=== PATIENT | male | born 1985 | race Caucasian/White ===

== ENCOUNTER 2017-09-04 00:11 | Emergency (ER) | payer BC, OTHER ==
[~2017-09-04] VITALS: Ht 177.8 cm; Wt 74.8 kg
[2017-09-04 00:11] VITALS: BP 127/81
[2017-09-04] MEDS ORDERED: TRAMADOL HCL 50 MG TABLET ONE (00:37)
[2017-09-04] MEDS ORDERED: ONDANSETRON 4 MG TAB.RAPDIS ONE (00:37)
[2017-09-04] MEDS ORDERED: ONDANSETRON 4 MG TAB.RAPDIS SL ONE (01:00)
[2017-09-04] MEDS ORDERED: TRAMADOL HCL 50 MG TABLET PO ONE (01:00)
[2017-09-04] MEDS ORDERED: ACETAMINOPHEN 325 MG TABLET PO ONE (02:00)
[2017-09-04] MEDS ORDERED: ACETAMINOPHEN ES 500 MG TABLET ONE (02:04)
== END 2017-09-04 02:07 | disposition home or self-care (01) ==
LOC: ER 00:13
DX: E86.0 Dehydration (principal); R11.0 Nausea; R50.9 Fever, unspecified; M79.1 Myalgia; F17.200 Nicotine dependence, unspecified, uncomplicated; Z87.442 Personal history of urinary calculi
CPT/HCPCS: 87400; A4606; Q0162; Z7610

== ENCOUNTER 2018-05-03 05:38 | Emergency (ER) | payer BC, OTHER ==
[~2018-05-03] VITALS: Ht 185.4 cm; Wt 65.8 kg
[2018-05-03 05:39] VITALS: BP 120/80
[2018-05-03] MEDS ORDERED: TDAP [DIPH/PERTUSSIS/TET] 0.5 ML VIAL IM ONE ×2 (06:07→06:30)
== END 2018-05-03 06:37 | disposition home or self-care (01) ==
LOC: ER 05:40
DX: S61.304A Unspecified open wound of right ring finger with damage to nail, initial encounter (principal); F17.200 Nicotine dependence, unspecified, uncomplicated; X58.XXXA Exposure to other specified factors, initial encounter; Y93.G3 Activity, cooking and baking; Y92.89 Other specified places as the place of occurrence of the external cause; Y99.8 Other external cause status
CPT/HCPCS: 90715; A4606; Z7610

== ENCOUNTER 2019-10-25 09:54 | Outpatient (CLI) | payer BC ==
[2019-10-25 12:06] LABS: ALBUMIN 4.5 g/dL (3.4-5.0); BILIRUBIN,TOTAL 0.5 mg/dL (0.2-1.0); CALCIUM, SERUM 9.7 mg/dL (8.5-10.1); POTASSIUM 3.7 mmol/L (3.5-5.1); TOTAL PROTEIN, SERUM 7.8 g/dL (6.4-8.2)
[2019-10-25 12:17] LABS: BASOPHILS # (AUTO) 0.1 /CMM (0.0-0.2); BASOPHILS % (AUTO) 1.1 % (0.0-2.0); EOSINOPHILS % (AUTO) 4.2 % (0.0-6.0); HEMATOCRIT 48 % (39-51); HEMOGLOBIN 16.5 g/dL (13.5-17.5); LYMPHOCYTES # (AUTO) 2.2 /CMM (0.8-4.8); LYMPHOCYTES % (AUTO) 22.1 % (20.0-44.0); MEAN CORPUSCULAR HGB CONC 34 g/dl (31.0-36.0); MEAN CORPUSCULAR VOLUME 88 fL (80-96); MONOCYTES # (AUTO) 0.7 /CMM (0.1-1.30); MONOCYTES % (AUTO) 7.4 % (2.0-12.0); NEUTROPHILS # (AUTO) 6.5 /CMM (1.8-8.9); NEUTROPHILS % (AUTO) 65.2 % (43.0-81.0); PLATELET COUNT (AUTO) 314 /CMM (150-450); RED BLOOD CELL COUNT(AUTO) 5.47 MIL/uL (4.5-6.0)
[2019-10-25 12:34] LABS: APPEARANCE,URINE CLEAR (CLEAR); BILIRUBIN,URINE NEGATIVE (NEGATIVE); BLOOD, URINE NEGATIVE Ery/uL (NEGATIVE); COLOR,URINE YELLOW (YELLOW); KETONES,URINE NEGATIVE (NEGATIVE); LEUKOCYTE ESTERASE ,URINE NEGATIVE (NEGATIVE); NITRITE, URINE NEGATIVE (NEGATIVE); PROTEIN,URINE NEGATIVE (NEGATIVE); UGLUCOSE NEGATIVE (NEGATIVE); UROBILINOGEN,URINE 0.2 EU/dL (0.2)
[2019-10-26 01:33] LABS: THYROID STIMULATING HORMONE 2.073 uIU/mL (0.358-3.74); URIC ACID 6.2 mg/dL (2.6-7.2)
[2019-10-26 11:07] LABS: FOLIC ACID 12.6 ng/mL (>3.0)
== END 2019-10-25 23:59 | disposition home or self-care (01) ==
LOC: LAB 09:54
PROVIDERS: ATTEND Legal Medicine
DX: Z00.00 Encounter for general adult medical examination without abnormal findings (principal)
CPT/HCPCS: 36415; 80053-TC; 80061-TC; 81000-TC; 82306; 82626; 82728-TC; 83540-TC; 84402; 84403; 84439-TC; 84443-TC; 84550-TC; 85025-TC

== ENCOUNTER 2019-12-14 12:19 | Outpatient (CLI) | payer BC ==
[2019-12-15 08:06] LABS: *MUMPS AB (IGG) 46.3 AU/mL (Immune >10.9); *RUBEOLA AB (IGG) >300.0 AU/mL (Immune >16.4); RUBELLA ANTIBODIES, IGG 3.21 index (Immune >0.99); VARICELLA ZOSTER IgG 603 index (Immune >165)
== END 2019-12-14 23:59 | disposition home or self-care (01) ==
LOC: LAB 12:19
PROVIDERS: ATTEND Legal Medicine
DX: Z00.00 Encounter for general adult medical examination without abnormal findings (principal)
CPT/HCPCS: 36415; 86706; 86735; 86762; 86765; 86787; 87340

== ENCOUNTER 2020-01-20 11:53 | Outpatient (CLI) | payer BC | END 2020-01-20 23:59 | disposition home or self-care (01) | LOC: LAB 11:53 | PROVIDERS: ATTEND Legal Medicine | DX: Z00.00 Encounter for general adult medical examination without abnormal findings (principal) | CPT/HCPCS: 36415; 86317; 87340 ==

== ENCOUNTER 2020-04-05 19:44 | Emergency (ER) | payer BC ==
[~2020-04-05] VITALS: Ht 188 cm; Wt 88.5 kg
--- NOTE | 2020-04-05 20:02 | NUR ---
PATIENT CAME TO ER BED 6 C/O NON-RADIATING LOWER ABDOMINAL PAIN SINCE LAST NIGHT. PATIENT STATES THAT HE HAS PAINFUL GAS AND HAS HAD A BOWEL MOVEMENT LAST NIGHT WITH NO DIARRHEA. DENIES ANY NAUSEA AND VOMITING. PATIENT STATES, " I HAVE A 101 FEVER LAST NIGHT". PATIENT ABLE TO PROVIDE URINE SAMPLE. PATIENT IS [id number]. AMBULATORY. NO SOB. BREATHING EVENLY AND UNLABORED ON ROOM AIR.
--- NOTE | 2020-04-05 20:06 | NUR ---
BLOOD AND URINE IS COLLECTED AND SENT TO THE LAB.
[2020-04-05 20:08] LABS: BASOPHILS # (AUTO) 0.1 /CMM (0.0-0.2); BASOPHILS % (AUTO) 0.6 % (0.0-2.0); EOSINOPHILS % (AUTO) 0.8 % (0.0-6.0); HEMATOCRIT 45 % (39-51); HEMOGLOBIN 15.4 g/dL (13.5-17.5); LYMPHOCYTES # (AUTO) 1.5 /CMM (0.8-4.8); LYMPHOCYTES % (AUTO) 10.1 % (20.0-44.0); MEAN CORPUSCULAR HGB CONC 34 g/dl (31.0-36.0); MEAN CORPUSCULAR VOLUME 89 fL (80-96); MONOCYTES # (AUTO) 1.5 /CMM (0.1-1.30); MONOCYTES % (AUTO) 10.1 % (2.0-12.0); NEUTROPHILS # (AUTO) 11.8 /CMM (1.8-8.9); NEUTROPHILS % (AUTO) 78.4 % (43.0-81.0); PLATELET COUNT (AUTO) 272 /CMM (150-450); RED BLOOD CELL COUNT(AUTO) 5.03 MIL/uL (4.5-6.0)
[2020-04-05] MEDS ORDERED: ONDANSETRON HCL/PF 4 MG/2 ML VIAL ONE (20:09)
[2020-04-05 20:15] LABS: CALCIUM, SERUM 8.9 mg/dL (8.5-10.1); POTASSIUM 3.7 mmol/L (3.5-5.1)
--- NOTE | 2020-04-05 20:15 | NUR ---
PT TAKEN TO RADIOLOGY FOR CT
[2020-04-05 20:16] LABS: APPEARANCE,URINE Clear (CLEAR); BILIRUBIN,URINE Negative (NEGATIVE); BLOOD, URINE Trace-intact Ery/uL (NEGATIVE); COLOR,URINE Yellow (YELLOW); KETONES,URINE Negative (NEGATIVE); LEUKOCYTE ESTERASE ,URINE Negative (NEGATIVE); NITRITE, URINE Negative (NEGATIVE); PH,URINE 5.5 (5.0-8.0); PROTEIN,URINE Negative (NEGATIVE); UGLUCOSE Negative (NEGATIVE); UROBILINOGEN,URINE 0.2 EU/dL (0.2)
[2020-04-05 20:19] LABS: BACTERIA,URINE None seen /HPF (None Seen); MUCUS,URINE Few /LPF (None Seen); RBC,URINE 2-3/HPF /HPF (0-2); SQUAMOUS EPITHELIAL CELL,UR Rare /HPF (None Seen); URINE AMORPHOUS URATE Few /HPF (None Seen); WBC,URINE 0-2 /HPF (0-3)
[2020-04-05 20:21] LABS: ALBUMIN 4.3 g/dL (3.4-5.0); BILIRUBIN,DIRECT 0.2 mg/dL (0.0-0.2); BILIRUBIN,TOTAL 0.9 mg/dL (0.2-1.0)
--- NOTE | 2020-04-05 20:29 | NUR ---
covid swab done and sent to lab
[2020-04-05] MEDS ORDERED: ONDANSETRON HCL/PF 4 MG/2 ML VIAL IVP ONE (20:30)
[2020-04-05] MEDS ORDERED: IV NS 0.9% 1,000 ML BAG IV ONE (20:30)
[2020-04-05] MEDS ORDERED: MORPHINE SULFATE INJ 2 MG/ML DISP.SYRIN IV ONE (21:30)
[2020-04-05] MEDS ORDERED: MORPHINE SULFATE INJ 4 MG/ML DISP.SYRIN ONE (21:31)
[2020-04-05] MEDS ORDERED: PIPERACILLIN /TAZOBACTAM 3.375 G VIAL IV ONE (21:58)
[2020-04-05] MEDS ORDERED: PIPERACILLIN /TAZOBACTAM 3.375 G in IV D5W 50 ML IV ONE (22:00)
--- NOTE | 2020-04-05 22:40 | NUR ---
Patient discharged to home in stable condition. Written and verbal after care instructions given. Patient verbalizes understanding of instruction.IV removed. Catheter intact and site benign. Pressure and 4x4 applied to site. No bleeding noted. Pt ambulatory with a steady gait
[2020-04-05 22:46] VITALS: BP 124/83
== END 2020-04-05 22:46 | disposition home or self-care (01) ==
LOC: ER 19:47
DX: K57.32 Diverticulitis of large intestine without perforation or abscess without bleeding (principal); R00.0 Tachycardia, unspecified; R31.9 Hematuria, unspecified; N20.0 Calculus of kidney; R50.9 Fever, unspecified; Z20.828 Contact with and (suspected) exposure to other viral communicable diseases
CPT/HCPCS: 36415; 80048; 80076; 81001; 83690; 85025; 96361; 96365; 96375; 99284; C9803; J2270; J2405; J2543 ×2; J7060; U0003; 81000-TC

== ENCOUNTER 2021-02-06 12:25 | Outpatient (CLI) | payer BC ==
[2021-02-06 13:27] LABS: BASOPHILS # (AUTO) 0.1 K/uL (0.0-0.2); BASOPHILS % (AUTO) 1.1 % (0.0-2.0); EOSINOPHILS % (AUTO) 4.2 % (0.0-6.0); HEMATOCRIT 48 % (39-51); HEMOGLOBIN 16.6 g/dL (13.5-17.5); LYMPHOCYTES # (AUTO) 1.7 K/uL (0.8-4.8); LYMPHOCYTES % (AUTO) 24.3 % (20.0-44.0); MEAN CORPUSCULAR HGB CONC 34 g/dl (31.0-36.0); MEAN CORPUSCULAR VOLUME 91 fL (80-96); MONOCYTES # (AUTO) 0.6 K/uL (0.1-1.30); MONOCYTES % (AUTO) 8.7 % (2.0-12.0); NEUTROPHILS # (AUTO) 4.3 K/uL (1.8-8.9); NEUTROPHILS % (AUTO) 61.7 % (43.0-81.0); PLATELET COUNT (AUTO) 321 K/uL (150-450); RED BLOOD CELL COUNT(AUTO) 5.33 MIL/uL (4.5-6.0)
[2021-02-06 13:57] LABS: BILIRUBIN,URINE NEGATIVE (NEGATIVE); COLOR,URINE YELLOW (YELLOW); LEUKOCYTE ESTERASE ,URINE NEGATIVE (NEGATIVE); NITRITE, URINE NEGATIVE (NEGATIVE); PROTEIN,URINE NEGATIVE (NEGATIVE); UGLUCOSE NEGATIVE (NEGATIVE); UROBILINOGEN,URINE 0.2 EU/dL (0.2)
[2021-02-06 13:58] LABS: FREE T4 (FREE THYROXINE) 0.93 ng/dL (0.76-1.46); PROSTATE SPECIFIC ANTIGEN SCR 1.01 ng/mL (0.00-4.00); THYROID STIMULATING HORMONE 1.312 uIU/mL (0.358-3.74); URIC ACID 6.1 mg/dL (2.6-7.2)
[2021-02-06 14:09] LABS: RBC,URINE NONE SEEN /HPF (0-2)
[2021-02-06 14:10] LABS: BACTERIA,URINE Rare /HPF (None Seen); SQUAMOUS EPITHELIAL CELL,UR None Seen /HPF (None Seen); WBC,URINE 0-2 /HPF (0-3)
[2021-02-06 14:11] LABS: ALBUMIN 4.4 g/dL (3.4-5.0); BILIRUBIN,TOTAL 0.6 mg/dL (0.2-1.0); CALCIUM, SERUM 9.4 mg/dL (8.5-10.1); POTASSIUM 3.9 mmol/L (3.5-5.1); TOTAL PROTEIN, SERUM 7.8 g/dL (6.4-8.2)
[2021-02-07] MEDS ORDERED: BACITRACIN 50000 UNITS/VIAL ONE (07:17)
== END 2021-02-06 23:59 | disposition home or self-care (01) ==
LOC: LAB 12:25
PROVIDERS: ATTEND Legal Medicine
DX: E11.9 Type 2 diabetes mellitus without complications (principal); E03.9 Hypothyroidism, unspecified; E55.9 Vitamin D deficiency, unspecified; E78.5 Hyperlipidemia, unspecified; R53.1 Weakness; Z00.00 Encounter for general adult medical examination without abnormal findings
CPT/HCPCS: 36415; 80053-TC; 80061-TC; 81001; 82306; 82607-TC; 82626; 82728-TC; 83540-TC; 84153-TC; 84402; 84403; 84439-TC; 84443-TC; 84550-TC; 85025-TC; 87086-TC